=== PATIENT | male | born 1985 | race Caucasian/White ===

== ENCOUNTER 2021-02-22 03:33 | Outpatient (CLI) | payer MEDICAID, SELFPAY ==
--- NOTE | 2021-03-11 08:49 | ZIOP_ITS ---
Date of service: 03/11/21 Time of Service: 08:49 14 Day Public Policy Mediator Referring Provider:: Mariza Indications:: Palps Note: There is a 14-day monitor order for indication of palpitations. ?The patient was in normal sinus rhythm for the majority the recording with an average heart rate of 74 bpm. ?There were no episodes of supraventricular tachycardia nor any episodes of ventricular tachycardia. ?There were rare PACs and rare PVCs. ?There were no episodes of atrial fibrillation, no pauses greater than 3 seconds and no evidence of high degree heart block. ?There were 33 patient triggered events. 30 of these were not associated with any arrhythmia. 3 of them were associated with sinus tachycardia.
== END 2021-02-22 03:34 | disposition home or self-care (01) ==
LOC: RT 03:33
PROVIDERS: Visit Provider Family Medicine
DX: I49.8 Other specified cardiac arrhythmias (principal)
CPT/HCPCS: 93246

== ENCOUNTER 2023-08-26 20:18 | Emergency (ER) | payer MEDICAID, SELFPAY ==
[2023-08-26 20:21] VITALS: BP 145/82; PULSE 85; RESP 18; TEMP 37.1; O2SAT 98
--- NOTE | 2023-08-26 20:52 | NUR.NOTE ---
Accessed [facility] for Tdap status.Nursing Note:
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
[2023-08-26] MEDS: Tetanus & Diphtheria Tox,ADULT 0.5 ML VIAL IM (21:35)
== END 2023-08-26 21:37 | disposition home or self-care (01) ==
PROVIDERS: Emergency Provider Nurse Practitioner Family; PCP Family Medicine
DX: S01.412A Laceration without foreign body of left cheek and temporomandibular area, initial encounter (principal); F17.210 Nicotine dependence, cigarettes, uncomplicated; Z23 Encounter for immunization; Y04.2XXA Assault by strike against or bumped into by another person, initial encounter
CPT/HCPCS: 12011; 90471; 90714; 99283